=== PATIENT | male | born 1995 | race Caucasian/White ===

== ENCOUNTER 2020-10-09 06:09 | Observation (INO) | payer OTHER, SELFPAY ==
[~2020-10-09] VITALS: Ht 180.3 cm; Wt 89.8 kg
[2020-10-09 06:09] VITALS: BP_SYST 155
--- NOTE | 2020-10-09 06:09 | NUR ---
Placed in room 06 . Placed on manager web application, blood pressure machine and pulse oximeter. To gown for exam. Side rails up. Report given to NOA Pacheco
--- NOTE | 2020-10-09 06:10 | NUR ---
Patient BIB by ALS/EMS from home. C/O overdose today. Per reported, patient smoked Fentanyl after stop use over 2 and half years. GCS 3 at the scence , Given Narcan 4 mg IM - GCS 15- A/O,X4,denies pain, no respitatory distress, place patient on cardiac technologist and pulse ox. HR 110, RR 15, Oxygen sat 99 % RA and BP 155/79, Stat EKG at bedside.
--- NOTE | 2020-10-09 06:11 | NUR ---
# 20 gauge angiocath placed to LAC. Use of asceptic technique. Opsite placed over site. Blood return noted. Blood, blood cultures, lacticfor lab drawn from site. Flushed with 10 cc of normal saline. No evidence of infiltration noted. Patient tolerated well.
[2020-10-09] MEDS ORDERED: NACL 0.9% 1,000 ML IV ONE ×2 (06:15→08:45)
--- NOTE | 2020-10-09 06:19 | NUR ---
ER at bedside examining patient.
[2020-10-09 06:23] LABS: BASOPHILS # (AUTO) 0.1 K/uL (0.0-0.2); BASOPHILS % (AUTO) 0.7 % (0.0-2.0); EOSINOPHILS # (AUTO) 0.7 K/uL (0.0-0.4); EOSINOPHILS % (AUTO) 6.7 % (0.0-4.0); HEMATOCRIT 51.7 % (36-54); HEMOGLOBIN 17.5 g/dL (14.0-18.0); LYMPHOCYTES # (AUTO) 3.3 K/uL (1.0-5.5); LYMPHOCYTES % (AUTO) 33.9 % (20.5-51.5); MEAN CORPUSCULAR HEMOGLOBIN 30 pg (27-31); MEAN CORPUSCULAR HGB CONC 34 % (32-36); MEAN CORPUSCULAR VOLUME 88 fL (79.0-98.0); MONOCYTES # (AUTO) 1.2 K/uL (0.0-1.0); MONOCYTES % (AUTO) 12.3 % (1.7-9.3); NEUTROPHILS # (AUTO) 4.5 K/uL (1.8-7.7); NEUTROPHILS % (AUTO) 46.4 % (40.0-70.0); PLATELET COUNT (AUTO) 339 K/uL (130-430); RED BLOOD CELL COUNT(AUTO) 5.86 MIL/uL (4.2-6.2); RED CELL DISTRIBUTION WIDTH 14.4 % (9.0-15.0); WHITE BLOOD COUNT (AUTO) 9.7 K/uL (4.8-10.8)
--- NOTE | 2020-10-09 06:27 | NUR ---
Called Poison Control at [phone] and spoke with Phil. Per recommendations: -observe patient for 4-6 hours after last dose of narcan was given -if reocurring respiratory depression after narcan administration then admit patient because a longer acting opioid might have been involved -airway management -labs: tylenol, aspirin, blood alcohol -Substance Abuse Hotline Dr. Cross notified. Will continue to monitor patient.
[2020-10-09] MEDS ORDERED: ACETAMINOPHEN 500 MG TABLET PO ONE (06:30)
[2020-10-09] MEDS ORDERED: ACETAMINOPHEN 500 MG TABLET ONE (06:35)
[2020-10-09 06:40] LABS: ANION GAP 8 (5-15); CALCIUM 8.6 mg/dL (8.4-11.0); CHLORIDE 100 mmol/L (98-107); CREATININE 1.37 mg/dL (0.55-1.30); GLUCOSE 183 mg/dL (70-99); POTASSIUM 3.8 mmol/L (3.5-5.1); SODIUM SERUM 138 mmol/L (136-145); UREA NITROGEN, BLOOD 17 mg/dL (8-21)
[2020-10-09 06:44] LABS: GFR AFRICAN AMERICAN 82 mL/min (>90)
[2020-10-09 06:56] LABS: ALANINE AMINOTRANSFERASE 70 U/L (12-78); ALBUMIN 3.9 g/dL (3.4-4.8); ASPARTATE AMINOTRANSFERASE 58 U/L (10-37); TOTAL BILIRUBIN 0.2 mg/dL (0.0-1.0)
[2020-10-09 06:59] LABS: ALCOHOL, BLOOD < 3 mg/dL (<10)
--- NOTE | 2020-10-09 07:10 | NUR ---
Care of patient endorsed to NOA Lara.
[2020-10-09 07:13] LABS: ACETAMINOPHEN < 1 ug/mL (1-30)
[2020-10-09 07:19] LABS: CKMB RELATIVE INDEX 0.4 (0.0-2.9); CREATINE KINASE MB 7.9 ng/mL (0-3.6)
--- NOTE | 2020-10-09 07:29 | NUR ---
patient talking to the phone, no s/s of distress.
[2020-10-09 07:58] LABS: BILIRUBIN,URINE NEGATIVE (NEGATIVE); BLOOD, URINE NEGATIVE (NEGATIVE); CLARITY/URINE CLEAR (CLEAR); COLOR,URINE YELLOW (YELLOW); GLUCOSE,URINE NEGATIVE (NEGATIVE); KETONES,URINE NEGATIVE (NEGATIVE); LEUKOCYTE ESTERASE ,URINE NEGATIVE (NEGATIVE); NITRITE, URINE NEGATIVE (NEGATIVE); PH,URINE 6.5 (5.0-8.0); PROTEIN URINE NEGATIVE (NEGATIVE); UROBILINOGEN,URINE 0.2 (0.2-1.0)
[2020-10-09] MEDS ORDERED: NACL 0.9% 2,000 ML IV ONE (08:00)
[2020-10-09 08:17] LABS: BARBITURATE, URINE NEGATIVE (NEG <=200); BENZODIAZEPINE, URINE NEGATIVE (NEG <=150); CANNABINOID, URINE NEGATIVE (NEG <=50); COCAINE, URINE NEGATIVE (NEG <=150); METHAMPHETAMINES SCREEN,URINE NEGATIVE (NEG <=500); OPIATE, URINE NEGATIVE (NEG <=100); PHENCYCLIDINE SCREEN,URINE NEGATIVE (NEG <=25); UR TRICYCLIC ANTIDEPRESSANTS NEGATIVE (NEG <=300); URINE AMPHETAMINE NEGATIVE (NEG <=500); URINE METHADONE NEGATIVE (NEG <=200); URINE OXYCODONE SCREEN NEGATIVE (NEG <=100); URINE PROPOXYPHENE SCREEN NEGATIVE (NEG <=300)
--- NOTE | 2020-10-09 09:40 | NUR ---
Patient will be admitted to care of dr. Lamb. Admitted to med/surg unit. Will go to room 117b. Belongings list completed. Complete and up to date summary report printed. SBAR report to be given telephone with opportunity for questions.
--- NOTE | 2020-10-09 09:50 | NUR ---
INITIAL NOTE RECEIVED PT IN BED, NO S/S OF DISTRESS OR SOB NOTED, PT HAS NO C/O PAIN AT THIS TIME, PT IN STABLE CONDITION, PT AAOX4, VERBAL. IV CATHETER PATENT, NO SIGNS OF INFECTION OR INFILTRATION NOTED, RUNNING IV FLUIDS ORDERED. WILL CONTINUE TO MONITOR PT FOR ANY CHANGES, FALL AND SAFETY PRECAUTIONS IN PLACE.
[2020-10-09 10:07] VITALS: BP_SYST 141
--- NOTE | 2020-10-09 10:40 | NUR ---
CONSULT PSYCH DRUG OVERDOSE DR WOLF [phone] DR DURANT AIRLINE STATION AGENT S/W [facility] EXCHANGE
[2020-10-09 12:00] VITALS: BP_SYST 133
[2020-10-09 16:00] VITALS: BP_SYST 131
--- NOTE | 2020-10-09 18:33 | NUR ---
CLOSING NOTE PT IN BED, NO S/S OF DISTRESS OR SOB NOTED, PT HAS NO C/O PAIN AT THIS TIME, PT IN STABLE CONDITION, PT AAOX4, VERBAL. IV CATHETER PATENT, NO SIGNS OF INFECTION OR INFILTRATION NOTED, RUNNING IV FLUIDS ORDERED. WILL ENDORSE CARE OF PT TO INCOMING NURSE, FALL AND SAFETY PRECAUTIONS IN PLACE.
--- NOTE | 2020-10-09 19:25 | NUR ---
PHYSICIAN ROUNDS DR. MOLINA AT NURSES STATION. POC DISCUSSED.
--- NOTE | 2020-10-09 19:28 | NUR ---
HIGH ALERT NOTE: Dr. Michelle at nurses station. Verified with Dr. Michelle to verify physician authenticity.
[2020-10-09] MEDS ORDERED: MELATONIN 3 MG TABLET PO PRN (19:30)
[2020-10-09] MEDS ORDERED: traZODone HCL 50 MG TABLET (DESYREL) PO PRN (19:45)
[2020-10-09 20:00] VITALS: BP_SYST 155
--- NOTE | 2020-10-09 21:30 | NUR ---
RN ROUNDS PT IN BED, NO S/S OF DISTRESS OR SOB NOTED, PT HAS NO C/O PAIN AT THIS TIME, PT IN STABLE CONDITION. PT RESTING COMFORTABLY, WILL CONTINUE TO MONITOR PT FOR ANY CHANGES.
--- NOTE | 2020-10-09 23:45 | NUR ---
IV END TIME NS STOPPED AT [id number]
[2020-10-10] VITALS: BP_SYST 118
--- NOTE | 2020-10-10 01:37 | NUR ---
RESTING PT IN BED, NO S/S OF DISTRESS OR SOB NOTED, PT HAS NO C/O PAIN AT THIS TIME, PT IN STABLE CONDITION. PT RESTING COMFORTABLY, WILL CONTINUE TO MONITOR PT FOR ANY CHANGES.
--- NOTE | 2020-10-10 03:01 | NUR ---
RN ROUNDS: PT IN BED, NO S/S OF DISTRESS OR SOB NOTED, PT HAS NO C/O PAIN AT THIS TIME, PT IN STABLE CONDITION. PT RESTING COMFORTABLY, WILL CONTINUE TO MONITOR PT FOR ANY CHANGES.
--- NOTE | 2020-10-10 06:34 | NUR ---
CLOSING NOTE PT RESTING IN BED, NO S/S OF ACUTE DISTRESS, ALL NEEDS MET DURING SHIFT. SAFETY MAINTAINED. WILL ENDORSE TO DAY SHIFT RN.
[2020-10-10 06:46] LABS: BASOPHILS # (AUTO) 0.1 K/uL (0.0-0.2); BASOPHILS % (AUTO) 1.6 % (0.0-2.0); EOSINOPHILS # (AUTO) 0.7 K/uL (0.0-0.4); EOSINOPHILS % (AUTO) 8.9 % (0.0-4.0); HEMATOCRIT 53.5 % (36-54); HEMOGLOBIN 18.2 g/dL (14.0-18.0); LYMPHOCYTES # (AUTO) 1.6 K/uL (1.0-5.5); LYMPHOCYTES % (AUTO) 21.1 % (20.5-51.5); MEAN CORPUSCULAR HEMOGLOBIN 30 pg (27-31); MEAN CORPUSCULAR HGB CONC 34 % (32-36); MEAN CORPUSCULAR VOLUME 88 fL (79.0-98.0); MONOCYTES # (AUTO) 0.8 K/uL (0.0-1.0); MONOCYTES % (AUTO) 10.9 % (1.7-9.3); NEUTROPHILS # (AUTO) 4.4 K/uL (1.8-7.7); NEUTROPHILS % (AUTO) 57.5 % (40.0-70.0); PLATELET COUNT (AUTO) 335 K/uL (130-430); RED BLOOD CELL COUNT(AUTO) 6.06 MIL/uL (4.2-6.2); RED CELL DISTRIBUTION WIDTH 14.2 % (9.0-15.0); WHITE BLOOD COUNT (AUTO) 7.7 K/uL (4.8-10.8)
--- NOTE | 2020-10-10 07:32 | NUR ---
OPENING NOTE Patient resting in the bed. No acute distress. AAO x 4. Denied of pain. Skin warm and dry to touch. SL intact to LFA, no redness, no swelling, patent. Discussed safety issue, use call light when needs help, and plan of care, verbally understanding. Safety measure maintained. Call light within reached. Bed locked in low position, side rails up. Refused bed alarm, risk and benefit explained, verbally understanding. Will continue to monitor.
[2020-10-10 07:43] LABS: ALBUMIN 3.5 g/dL (3.4-4.8); CREATININE 1.1 mg/dL (0.55-1.30); POTASSIUM 4.5 mmol/L (3.5-5.1); TOTAL BILIRUBIN 0.5 mg/dL (0.0-1.0)
[2020-10-10 07:50] VITALS: BP_SYST 128
[2020-10-10 08:20] LABS: CKMB RELATIVE INDEX 0.3 (0.0-2.9); CREATINE KINASE MB 3.2 ng/mL (0-3.6)
--- NOTE | 2020-10-10 09:25 | NUR ---
ROUND Patient resting in the bed. No acute distress. Stated wants to go home today and waited Dr. Lamb come to see the patient. Safety measure maintained. Call light within reached. Continue to monitor.
--- NOTE | 2020-10-10 10:45 | NUR ---
SEEN AND EXAMINED BY NICOLE RAPHAEL WITH DISCHARGE ORDER RECEIVED.
[2020-10-10 11:49] VITALS: BP_SYST 124
[2020-10-10 12:00] VITALS: BP_SYST 123; BP_SYST 124
--- NOTE | 2020-10-10 12:10 | NUR ---
D/C Patient Patient given medication reconciliation form and D/C instructions. Exit Care provided. Patient verbalized understanding. MD discussed with patient the results and treatment provided. Ambulatory with steady gait for discharge to home. Patient in stable condition, ID band removed. IV catheter removed, intact and dressing applied, no active bleeding. Patient educated on pain management and follow up appointment. All belongings sent with patient.
== END 2020-10-10 12:10 | disposition home or self-care (01) ==
LOC: SED 06:09 → SMU 08:41
PROVIDERS: ADMIT Internal Medicine; ATTEND Internal Medicine
DX: T40.2X1A Poisoning by other opioids, accidental (unintentional), initial encounter (principal); Z20.828 Contact with and (suspected) exposure to other viral communicable diseases; M62.82 Rhabdomyolysis; R42 Dizziness and giddiness; R74.8 Abnormal levels of other serum enzymes
CPT/HCPCS: 36415 ×2; 80053 ×2; 80307; 81003; 82550 ×2; 82553 ×2; 84484; 85025 ×2; 87426; 93005; 96360; 96361; 99284; G0378 ×2; G0482; G0480; G0481